=== PATIENT | male | born 1995 | race Caucasian/White ===

== ENCOUNTER 2016-07-09 11:17 | Emergency (ER) | payer BC ==
[~2016-07-09] VITALS: Ht 180.3 cm; Wt 112.6 kg
[~2016-07-09 11:17] MED LIST: LRT5 PO
[2016-07-09 11:20] VITALS: TEMP 36.5; Ht 180.3 cm; Wt 112.6 kg
[2016-07-09] MEDS ORDERED: MoRPHine SULFATE 10 MG/ML CARP/VIAL IV STA ×2 (11:27→13:49)
[2016-07-09] MEDS ORDERED: SODIUM CHLORIDE 0.9% 1000ML 1,000 ML IV STA (11:27)
[2016-07-09] MEDS ORDERED: ONDANSETRON INJ 2 MG/ML 2 ML VIAL IV STA (11:27)
[2016-07-09 11:44] LABS: BASO % 0.3 %; BASO ABS # 0.02 K/uL (0-0.2); COMPLETE YES; HEMATOCRIT 47.3 % (42-52); IG% 0.1 %; LYMPH % 28.9 %; LYMPH ABS # 2.28 K/uL (1.2-3.4); MEAN CELL VOLUME 85.1 fL (80-100); MEAN CORPUSCULAR HEMOGLOBIN 29.7 pg (25-34); MEAN CORPUSCULAR HGB CONC 34.9 g/dl (32-36); MEAN PLATELET VOLUME 9.4 fL (7.4-10.4); MONO % 7.8 %; NEUT % 59.9 %; PLATELET COUNT 278 K/uL (130-400); RED BLOOD COUNT 5.56 M/uL (4.7-6.1)
[2016-07-09 12:04] LABS: BUN/CREATININE RATIO 8.1 (10-20); CREATININE 1.2 mg/dl (0.60-1.40); POTASSIUM 4.1 mmol/L (3.5-5.1)
[2016-07-09] MEDS ORDERED: HYDROmorphone INJ 1 MG/ML SYR IV STA (12:33)
--- NOTE | 2016-07-09 13:39 | DIAGNOSTIC IMAGING REPORT ---
CT SCAN OF THE ABDOMEN AND PELVIS WITHOUT CONTRAST CLINICAL HISTORY: left flank pain COMPARISON STUDY: 01/23/2009 TECHNIQUE: CT scan of the abdomen and pelvis was performed from the lung bases to the proximal femurs. Images are reviewed in the axial, sagittal, and coronal planes. IV contrast was not administered for this examination. CT DOSE: 756.31 mGy.cm FINDINGS: Lower chest: There are minor basilar atelectatic changes. Liver: The unenhanced liver is normal in size, contour, and attenuation. There is no intrahepatic biliary ductal dilatation. Gallbladder: Unremarkable. Spleen: Normal in size and attenuation. Pancreas: Unremarkable. Adrenal glands: Unremarkable. Kidneys: No renal calculi are visualized. There is left-sided hydronephrosis and hydroureter. There is minor left perinephric renal edema. There is left periureteral edema. There is a 3 mm calculus at the level of the left ureterovesical junction. Bowel: There are no transition zones indicate bowel obstruction. There is no acute diverticulitis. The appendix appears normal. Peritoneum: There is no intraperitoneal free air or abdominal ascites. Vasculature: The abdominal aorta is normal in course and caliber. Adenopathy: None. Pelvic viscera: The bladder, and pelvic viscera are unremarkable. Skeletal structures: No destructive osseous lesions are seen. IMPRESSION: 3 mm obstructing calculus at the level of the left ureterovesical junction. Electronically signed by: Len Blackwell M.D. 07/09/2016 1:37 PM
[2016-07-09 13:56] LABS: URINE APPEARANCE CLOUDY (CLEAR); URINE COLOR DK YELLOW; URINE NITRITE NEG (NEG); URINE SPECIFIC GRAVITY 1.025 (1.000-1.030); UROBILINOGEN NEG (NEG); ZZUR CULT IF INDIC CLEAN CATCH NO
[2016-07-09 14:01] LABS: MANUAL MICROSCOPIC REQUIRED? NO; REVIEW REQ? NO; URINE BILIRUBIN NEG (NEG)
[2016-07-09] MEDS ORDERED: TAMS0.4C38 PO (14:45)
[2016-07-09] MEDS ORDERED: OXYC1TAB3 PO (14:45)
[2016-07-09 14:50] VITALS: BP 131/79; PULSE 97; O2SAT 97
--- NOTE | 2016-07-09 17:34 | EMERGENCY ROOM VISIT NOTE ---
History Report prepared by Jenny: Nicolle Srinivasan Under the Supervision of: Dr. Benjamin Wallace D.O. First contact with patient: 11:22 Chief Complaint: ABDOMINAL PAIN Stated Complaint: SEVERE ABD. PAIN Nursing Triage Summary: Triage note: pt reports "i have a sharp pain in my left kidney that wrap around to my abd down through my back." pt reports hx of kidney stones. pt reports nausea and vomitting. pt reports pain since 0830 today. History of Present Illness The patient is a 20 year old male who presents to the Emergency Room with complaints of constant left flank pain that started 3 hours ago. The pain is worse with sitting and wraps around into his abdomen and down into his left thigh. He is also experiencing nausea and had two episodes of vomiting. He has not urinated this morning so he is unsure of if he is experiencing pain or burning with urination. However, he assumes that he will experience pain and burning when he urinates. The patient has a history of kidney stones and states that the pain he is experiencing now is similar. He denies any penial discharge. The patient's last bowel movement was last night and it was normal. He still has his gallbladder and appendix. No fevers. Source of History: patient Onset: 3 hours ago Position: back (left flank pain) Timing: constant Modifying Factors (Worsening): other (sitting) Associated Symptoms: + abdominal pain, + nausea, + vomiting Note: pain in left thigh, no penial discharge Review of Systems See HPI for pertinent positives & negatives. A total of 10 systems reviewed and were otherwise negative. Past Medical & Surgical Medical Problems: (1) Kidney stones Family History Hypertension Social History Smoking Status: Never Smoker Current/Historical Medications Scheduled Tamsulosin Hcl (Flomax), 0.4 MG PO DAILY Scheduled PRN Oxycodone Immediate Rel Tab (Roxicodone Ir), 1-2 TAB PO Q4H PRN for Severe Pain Allergies Coded Allergies: No Known Allergies (Unverified , 07/09/16) Physical Exam Vital Signs Date Time Temp Pulse Resp B/P Pulse Ox O2 Delivery O2 Flow Rate FiO2 07/09/16 14:50 97 16 131/79 97 Room Air 07/09/16 13:00 82 16 130/77 98 Room Air 07/09/16 11:20 36.5 75 18 142/79 95 Room Air Physical Exam GENERAL: alert, sitting up in bed, disheveled appearing, well nourished, mild distress, non-toxic EYE EXAM: normal conjunctiva OROPHARYNX: no exudate, no erythema, lips, buccal mucosa, and tongue normal and mucous membranes are moist NECK: supple, no nuchal rigidity, no adenopathy, non-tender LUNGS: Clear to auscultation. Normal chest wall mechanics HEART: no murmurs, S1 normal and S2 normal ABDOMEN: abdomen soft, non-tender, normo-active bowel sounds, no masses, no rebound or guarding. BACK: Back is symmetrical on inspection and there is no deformity, no midline tenderness, no CVA tenderness, mild left flank tenderness. : Normal external circumcised genitalia. SKIN: no rashes and no bruising UPPER EXTREMITIES: upper extremities are grossly normal. LOWER EXTREMITIES: No pitting edema. NEURO EXAM: Normal sensorium, cranial nerves II-XII grossly intact, normal speech, no gross weakness of arms, no gross weakness of legs. Medical Decision & Procedures ER Provider Diagnostic Interpretation: CT results have been interpreted by the radiologist and reviewed by me. CT SCAN OF THE ABDOMEN AND PELVIS WITHOUT CONTRAST CLINICAL HISTORY: left flank pain COMPARISON STUDY: 01/23/2009 TECHNIQUE: CT scan of the abdomen and pelvis was performed from the lung bases to the proximal femurs. Images are reviewed in the axial, sagittal, and coronal planes. IV contrast was not administered for this examination. CT DOSE: 756.31 mGy.cm FINDINGS: Lower chest: There are minor basilar atelectatic changes. Liver: The unenhanced liver is normal in size, contour, and attenuation. There is no intrahepatic biliary ductal dilatation. Gallbladder: Unremarkable. Spleen: Normal in size and attenuation. Pancreas: Unremarkable. Adrenal glands: Unremarkable. Kidneys: No renal calculi are visualized. There is left-sided hydronephrosis and hydroureter. There is minor left perinephric renal edema. There is left periureteral edema. There is a 3 mm calculus at the level of the left ureterovesical junction. Bowel: There are no transition zones indicate bowel obstruction. There is no acute diverticulitis. The appendix appears normal. Peritoneum: There is no intraperitoneal free air or abdominal ascites. Vasculature: The abdominal aorta is normal in course and caliber. Adenopathy: None. Pelvic viscera: The bladder, and pelvic viscera are unremarkable. Skeletal structures: No destructive osseous lesions are seen. IMPRESSION: 3 mm obstructing calculus at the level of the left ureterovesical junction. Electronically signed by: Len Blackwell M.D. 07/09/2016 1:37 PM Laboratory Results 07/09/16 11:30 Red Blood Count 5.56, Mean Corpuscular Volume 85.1, Mean Corpuscular Hemoglobin 29.7, Mean Corpuscular Hemoglobin Concent 34.9, Mean Platelet Volume 9.4, Neutrophils (%) (Auto) 59.9, Lymphocytes (%) (Auto) 28.9, Monocytes (%) (Auto) 7.8, Eosinophils (%) (Auto) 3.0, Basophils (%) (Auto) 0.3, Neutrophils # (Auto) 4.73, Lymphocytes # (Auto) 2.28, Monocytes # (Auto) 0.62, Eosinophils # (Auto) 0.24, Basophils # (Auto) 0.02 07/09/16 11:30 Test 07/09/16 11:30 07/09/16 12:45 White Blood Count 7.90 K/uL (4.8-10.8) Red Blood Count 5.56 M/uL (4.7-6.1) Hemoglobin 16.5 g/dL (14.0-18.0) Hematocrit 47.3 % (42-52) Mean Corpuscular Volume 85.1 fL (80-100) Mean Corpuscular Hemoglobin 29.7 pg (25-34) Mean Corpuscular Hemoglobin Concent 34.9 g/dl (32-36) Platelet Count 278 K/uL (130-400) Mean Platelet Volume 9.4 fL (7.4-10.4) Neutrophils (%) (Auto) 59.9 % Lymphocytes (%) (Auto) 28.9 % Monocytes (%) (Auto) 7.8 % Eosinophils (%) (Auto) 3.0 % Basophils (%) (Auto) 0.3 % Neutrophils # (Auto) 4.73 K/uL (1.4-6.5) Lymphocytes # (Auto) 2.28 K/uL (1.2-3.4) Monocytes # (Auto) 0.62 K/uL (0.11-0.59) Eosinophils # (Auto) 0.24 K/uL (0-0.5) Basophils # (Auto) 0.02 K/uL (0-0.2) RDW Standard Deviation 40.4 fL (36.4-46.3) RDW Coefficient of Variation 12.9 % (11.5-14.5) Immature Granulocyte % (Auto) 0.1 % Immature Granulocyte # (Auto) 0.01 K/uL (0.00-0.02) Anion Gap 8.0 mmol/L (3-11) Est Creatinine Clear Calc Drug Dose 126.3 ml/min Estimated GFR () 101.0 Estimated GFR (Non- 87.1 BUN/Creatinine Ratio 8.1 (10-20) Calcium Level 9.0 mg/dl (8.5-10.1) Total Bilirubin 0.3 mg/dl (0.2-1) Direct Bilirubin 0.1 mg/dl (0-0.2) Aspartate Amino Transf (AST/SGOT) 32 U/L (15-37) Alanine Aminotransferase (ALT/SGPT) 110 U/L (12-78) Alkaline Phosphatase 88 U/L (45-117) Total Protein 7.6 gm/dl (6.4-8.2) Albumin 4.1 gm/dl (3.4-5.0) Lipase 108 U/L (73-393) Urine Color DK YELLOW Urine Appearance CLOUDY (CLEAR) Urine pH 6.0 (4.5-7.5) Urine Specific [place] 1.025 (1.000-1.030) Urine Protein 1+ (NEG) Urine Glucose (UA) NEG (NEG) Urine Ketones NEG (NEG) Urine Occult Blood 3+ (NEG) Urine Nitrite NEG (NEG) Urine Bilirubin NEG (NEG) Urine Urobilinogen NEG (NEG) Urine Leukocyte Esterase TRACE (NEG) Urine WBC (Auto) 1-5 /hpf (0-5) Urine RBC (Auto) >30 /hpf (0-4) Urine Hyaline Casts (Auto) 1-5 /lpf (0-5) Urine Epithelial Cells (Auto) 5-10 /lpf (0-5) Urine Bacteria (Auto) NEG (NEG) Laboratory results per my review. Medications Administered Medications (Trade) Dose Ordered Sig/David Route Start Time Stop Time Status Last Admin Dose Admin Sodium Chloride (Nss 1000ml) 1,000 ml @ 999 mls/hr Q1H1M STAT IV 07/09/16 11:27 07/09/16 12:27 DC 07/09/16 12:13 999 MLS/HR Ondansetron HCl (Zofran Inj) 4 mg NOW STAT IV 07/09/16 11:27 07/09/16 11:29 DC 07/09/16 12:12 4 MG Morphine Sulfate (MoRPHine SULFATE INJ) 6 mg NOW STAT IV 07/09/16 11:27 07/09/16 11:29 DC 07/09/16 12:12 6 MG Hydromorphone HCl (Dilaudid Inj) 1 mg NOW STAT IV 07/09/16 12:33 07/09/16 12:35 DC 07/09/16 12:43 1 MG Morphine Sulfate (MoRPHine SULFATE INJ) 6 mg NOW STAT IV 07/09/16 13:49 07/09/16 13:50 DC 07/09/16 13:57 6 MG ED Course ED COURSE: Vital signs were reviewed and showed hypertension. The patients medical record was reviewed The above diagnostic studies were performed and reviewed. ED treatments and interventions as stated above. 1123: The patient was evaluated in room A4. A complete history and physical examination was performed. 1127: Ordered Morphine Sulfate 6 mg IV, Zofran 4 mg IV, Sodium Chloride 1000 ml @ 999 mls/hr IV 1233: Ordered Dilaudid 1 mg IV 1349: Ordered Morphine Sulfate 6 mg IV 1454: Upon reevaluation, the patient is doing well. I discussed my findings with the patient and he understands and agrees with the treatment plan. Based on the patients age, coexisting illnesses, exam and lab findings the decision to treat as an outpatient was made. The patient remained stable while under my care. The patient appeared well at the time of discharge. Medical Decision Differential diagnoses include renal colic, appendicitis, diverticulitis, mesenteric ischemia, aortic pathology, infections, inflammatory bowel disease, PUD, biliary pathology, UTI, as well as others were entertained. Patient is a 20-year-old male who presents the ER with left flank pain. He notes this has been getting progressively worse since earlier today. Patient has had symptoms like this before several years ago when he had a kidney stone. He has a pacer in his back and has radiated into his groin. CBC along with BMP, LFTs, bilirubin and lipase are unremarkable. UA shows +[address] of abdomen and pelvis shows 3 mm distal partial obstructing stone. Patient was given IV narcotics. He is given 2 doses of Dilaudid with improvement of symptoms along with Zofran and fluids. UA shows no infection. There is no leukocytosis. No fever. He was discharged to follow with urology as an outpatient on Flomax and OxyIR. Discussed with Pt concerning signs and symptoms to watch out for. Pt was instructed to follow up with their PCP and discussed with the patient their option to return to the ED at anytime for persistent or worsening symptoms. The appropriate anticipatory guidance and out-patient management, including indications for return to the emergency department, were explained at length to the patient and understood. Impression Primary Impression: Renal colic Additional Impression: Hydronephrosis Scribe Attestation The scribe's documentation has been prepared under my direction and personally reviewed by me in its entirety. I confirm that the note above accurately reflects all work, treatment, procedures, and medical decision making performed by me. Departure Information Dispostion Home / Self-Care Prescriptions Tamsulosin Hcl (FLOMAX) 0.4 Mg Cap 0.4 MG PO DAILY, #10 CAP Prov: Benjamin Wallace, DO 07/09/16 Oxycodone Immediate Rel Tab (ROXICODONE IR) 5 Mg Tab 1-2 TAB PO Q4H Y for Severe Pain, #24 TAB Prov: Benjamin Wallace, DO 07/09/16 Referrals No Doctor, Assigned (PCP) Forms HOME CARE DOCUMENTATION FORM, IMPORTANT VISIT INFORMATION, [facility] Patient Instructions A Signature Page, ED Stone Renal W Colic Additional Instructions Please follow up with your primary care doctor with in the next 24 hours. Any worsening of your symptoms, please return to the ED immediately. This includes fevers greater than 100.4, worsening pain, passing out, inability to urinate, persistent nausea vomiting, or any other concerning signs or symptoms from your standpoint.
== END 2016-07-09 15:16 | disposition home or self-care (01) ==
LOC: C.EDB 11:19 → C.EDA 15:16
DX: N13.1 Hydronephrosis with ureteral stricture, not elsewhere classified (principal); Z87.442 Personal history of urinary calculi

== ENCOUNTER 2017-06-20 13:26 | Emergency (ER) | payer OTHER, BC ==
[~2017-06-20] VITALS: Ht 182.9 cm; Wt 125.6 kg
[2017-06-20 13:34] VITALS: TEMP 37; Ht 182.9 cm; Wt 125.6 kg
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
--- NOTE | 2017-06-20 15:36 | DIAGNOSTIC IMAGING REPORT ---
CERVICAL SPINE 5 VIEWS HISTORY: Neck pain. COMPARISON: None. FINDINGS: Straightening of the cervical spine. The cervical spine is visualized from C1 through the superior endplate of T1. There is no fracture. No subluxation. Disc spaces are preserved. Prevertebral soft tissues and the atlantodens interval are intact. IMPRESSION: No fracture or subluxation within the cervical spine. Electronically signed by: Warren Haji M.D. 06/20/2017 3:34 PM Dictated Date/Time: 06/20/2017 3:31 PM
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
[2017-06-20 16:16] VITALS: BP 134/80; PULSE 106; O2SAT 96
== END 2017-06-20 16:18 | disposition home or self-care (01) ==
LOC: C.EDB 13:29 → C.EDD 16:18
DX: S16.1XXA Strain of muscle, fascia and tendon at neck level, initial encounter (principal); S09.90XA Unspecified injury of head, initial encounter; V98.3XXA Accident to, on or involving ski lift, initial encounter; R40.2412 Glasgow coma scale score 13-15, at arrival to emergency department